=== PATIENT | male | born 1975 | race Caucasian/White ===

== ENCOUNTER 2023-09-18 07:04 | Emergency (ER) | payer BC ==
[2023-09-18 07:25] VITALS: O2SAT 100
--- NOTE | 2023-09-18 07:38 | ED Physician Documentation ---
PD HPI ABD PAIN - Stated complaint Stated Complaint: FLANK PX - Chief complaint Chief Complaint: Abd Pain - History obtained from History obtained from: Patient - History of Present Illness Timing - onset: How many hours ago (6), Today Timing - duration: Hours (abrupt onset at 1 am of left flank pain consistently. Eased some for hour or two, but worse again the past 2 hours.) Timing - details: Abrupt onset, Still present Pain level max: 10 Pain level now: 10 Quality: Cramping, Aching, Pain Location: LLQ Radiation: Left flank (initially in flank and moved some to left abd.) Improved by: No: Laying still, Position Worsened by: No: Moving, Breathing, Position, Palpation Associated symptoms: Nausea, Vomiting. No: Fever, Diarrhea, Constipation Similar symptoms before: Has not had sx before Review of Systems Ears: reports: Other (vertigo positional for past month, has seen PCP and is started PT with Donato maneuvers without much improvement. No hearing changes. No allergies nor sinus congestion.) : denies: Dysuria, Frequency, Hematuria PD PAST MEDICAL HISTORY - Past Medical History Past Medical History: Yes Neuro: Other - Past Surgical History Past Surgical History: No - Present Medications Home Medications: Ambulatory Orders Medication Instructions Recorded Confirmed dexAMETHasone [Decadron] 4 mg PO DAILY #5 tablet 09/18/23 - Allergies Allergies/Adverse Reactions: Allergies Allergy/AdvReac Type Severity Reaction Status Date / Time No Known Drug Allergies Allergy Verified 09/18/23 07:20 - Social History Does the pt smoke?: No Smoking Status: Never smoker Does the pt drink ETOH?: Yes Does the pt have substance abuse?: No - Immunizations Immunizations are current?: Yes - POLST Patient has POLST: No PD ED PE NORMAL - Vitals Vital signs reviewed: Yes - General General: Alert and oriented X 3, Well developed/nourished, Other (appears very uncomfortable and is pacing in room, holding left flank. ) - Cardiac Cardiac: RRR, No murmur - Respiratory Respiratory: Clear bilaterally - Abdomen Abdomen: Soft, Non tender - Back Back: No spinal TTP, Other (some CVA tender to percussion left side. ) - Derm Derm: Normal color, Warm and dry, No rash Results - Vitals Vitals: Vital Signs - 24 hr 09/18/23 09/18/23 09:37 10:36 Temperature 36.2 C L 36.4 C L Heart Rate 58 L 98 Respiratory 16 18 Rate Blood Pressure 118/80 123/84 H O2 Saturation 100 100 Oxygen O2 Source Room air - Labs Labs: Laboratory Tests 09/18/23 09/18/23 09/18/23 07:33 07:33 07:40 WBC 8.5 RBC 5.37 Hgb 15.4 Hct 46.2 MCV 86.0 MCH 28.7 MCHC 33.3 RDW 12.5 Plt Count 280 MPV 9.5 Neut # (Auto) 5.9 Lymph # (Auto) 2.1 [place] # (Auto) 0.4 Eos # (Auto) 0.1 Baso # (Auto) 0.1 Absolute Nucleated RBC 0.00 Nucleated RBC % 0.0 Sodium 138 Potassium 4.1 Chloride 104 Carbon Dioxide 26 Anion Gap 8.0 BUN 14 Creatinine 1.1 Estimated GFR (MDRD) 72 L Glucose 97 Calcium 9.8 Total Bilirubin 1.2 H AST 15 ALT 24 Alkaline Phosphatase 68 Total Protein 8.0 Albumin 4.6 Globulin 3.4 Albumin/Globulin Ratio 1.4 Lipase 223 H Urine Color YELLOW Urine Clarity HAZY Urine pH 6.0 Ur Specific [place] 1.020 Urine Protein NEGATIVE Urine Glucose (UA) NEGATIVE Urine Ketones NEGATIVE Urine Occult Blood LARGE H Urine Nitrite NEGATIVE Urine Bilirubin NEGATIVE Urine Urobilinogen 0.2 (NORMAL) Ur Leukocyte Esterase NEGATIVE Urine RBC 0-5 Urine WBC 0-3 Ur Squamous Epith Cells FEW Squamous Urine Bacteria Few Ur Microscopic Review INDICATED Urine Culture Comments NOT INDICATED - Rads (name of study) mild hydroureter on left. 2-3 mm stone in bladder Relevant Findings:: Prelim report reviewed, EMP independent interpretation of test PD Medical Decision Making - ED course Complexity details: reviewed results, re-evaluated patient (pain much improved with meds in ED of zofran, toradol and dilaudid. Not fully resolved but he is comfortable enough and declines further meds for now. ), considered differential (sounds most c/w kidney stone. No prior similar. Pain largely in flank so concern for largher stone. versus other causes. Can get CT scan shared decision with pt. ), d/w patient, d/w family (spouse) Reviewed Lab Results: by the time of CT, with only mild pain still, the stone appears to have gone into bladder. Presume some residual ureteral spasms/irritation. No other cause seen for pain on CT. regardeing his vertigo, he will be returning home to [place] this week (is just on vacation) so to follow up with PCP and PT there, ? to ask about ENT. Departure - Departure Disposition: 01 Home, Self Care Clinical Impression: Acute left flank pain, Ureterolithiasis, Vertigo Condition: Stable Record reviewed to determine appropriate education?: Yes Instructions: ED Stone Renal Passed, ED Vertigo Unspecified Prescriptions: dexAMETHasone [Decadron] 4 mg PO DAILY #5 tablet Comments: You did have a kidney stone in the left ureter causing the pain to your kidney and left side. This seems to have passed into the bladder on your CT scan. It was smaller 2 to 3 mm and so alonso you that it passed fairly readily. There often will be some crampiness in aching due to the irritation of the ureter from the stone and also some spasming of the ureter. This should be relatively mild and be treatable with Tylenol every 4-6 hours or ibuprofen/Advil every few hours. We can also add in a steroid type anti-inflammatory more primarily to help the vertigo you have been having; sometimes there can be inflammation in the inner ear contributing to the vertigo. Continue with the meclizine. You could also add a less sedating antihistamine such as cetirizine twice daily and see if you would need less of the meclizine along the way which can be more sedating. Stay well-hydrated. Follow-up with your primary care back in [place]. Forms: PCP List Discharge Date/Time: 09/18/23 10:43
[2023-09-18 07:40] LABS: BASOPHILS # (AUTO) 0.1 10^3/uL (0.0-0.1); BASOPHILS % (AUTO) 0.6 %; EOSINOPHILS # (AUTO) 0.1 10^3/uL (0.0-0.7); EOSINOPHILS % (AUTO) 1.4 %; HCT - HEMATOCRIT 46.2 % (42.0-52.0); HGB - HEMOGLOBIN 15.4 g/dL (14.0-18.0); LYMPHOCYTES # (AUTO) 2.1 10^3/uL (1.5-3.5); LYMPHOCYTES % (AUTO) 24.9 %; MEAN CORPUSCULAR HEMOGLOBIN 28.7 pg (27.0-31.0); MEAN CORPUSCULAR HGB CONC 33.3 g/dL (32.0-36.0); MEAN PLATELET VOLUME 9.5 fL (7.4-11.4); MONOCYTES # (AUTO) 0.4 10^3/uL (0.0-1.0); MONOCYTES % (AUTO) 4.2 %; NEUTROPHILS # (AUTO) 5.9 10^3/uL (1.5-6.6); NEUTROPHILS % (AUTO) 68.5 %; PLT - PLATELET COUNT 280 10^3/uL (130-450); RED BLOOD COUNT 5.37 10^6/uL (4.70-6.10); RED CELL DISTRIBUTION WIDTH 12.5 % (12.0-15.0); WHITE BLOOD COUNT 8.5 x10^3/uL (4.8-10.8)
[2023-09-18 07:48] LABS: BILIRUBIN,URINE NEGATIVE (NEGATIVE); GLUCOSE, URINE (UA) NEGATIVE (NEGATIVE); KETONES,URINE (UA) NEGATIVE (NEGATIVE); LEUKOCYTE ESTERASE, URINE NEGATIVE (NEGATIVE); NITRITE,URINE NEGATIVE (NEGATIVE); OCCULT BLOOD,URINE LARGE (NEGATIVE); PROTEIN,URINE NEGATIVE (NEGATIVE); UROBILINOGEN,URINE 0.2 (NORMAL) E.U./dL (NORMAL)
[2023-09-18 07:50] LABS: ALBUMIN 4.6 g/dL (3.2-5.5); ALBUMIN/GLOBULIN RATIO 1.4 (1.0-2.2); BILIRUBIN,TOTAL 1.2 mg/dL (0.2-1.0); CALCIUM 9.8 mg/dL (8.5-10.3); CREATININE 1.1 mg/dL (0.6-1.3); POTASSIUM 4.1 mmol/L (3.5-4.5)
[2023-09-18 07:55] LABS: CLARITY,URINE HAZY (CLEAR)
[2023-09-18 07:59] LABS: RBC,URINE 0-5 /HPF (0-5); SQUAMOUS EPITHELIAL CELL,UR FEW Squamous (<= Few); WBC,URINE 0-3 /HPF (0-3)
[2023-09-18 08:00] LABS: BACTERIA,URINE Few /HPF (None Seen)
[2023-09-18] MEDS: ONDANSETRON 4 MG/2 ML VIAL IVP STA (08:01)
[2023-09-18] MEDS: KETOROLAC 15 MG/ML VIAL IVP STA (08:01)
[2023-09-18] MEDS: HYDROmorphone 1 MG/ML CARPUJECT IVP STA (08:02)
[2023-09-18] MEDS ORDERED: iohexoL-300 100 ML VIAL ONE (08:04)
--- NOTE | 2023-09-18 08:43 | CT Report ---
PROCEDURE: Abdomen/Pelvis W INDICATIONS: left flank pain abrupt CONTRAST: Omni 300 100ml TECHNIQUE: After the administration of intravenous contrast, a CT scan of the abdomen and pelvis was performed. Images were recorded and evaluated at appropriate window settings. Reformats: coronal and sagittal. F or radiation dose reduction, the following was used: automated exposure control, adjustment of mA and /or kV according to patient size. COMPARISON: None. FINDINGS: Image quality: Diagnostic. Lower chest: Bibasilar dependent atelectasis is seen. Heart size is normal, no pericardial effusion.. Liver: No solid mass. Gallbladder: No radiopaque stones or wall thickening. Biliary tree: No intrahepatic or extrahepatic dilation, accounting for age. Spleen: No splenomegaly. Pancreas: No pancreatic ductal dilation. Adrenals: No adrenal nodule. Kidneys and ureters: No right-sided stones or hydronephrosis. No right hydroureter. There is slight p rominence of left renal collecting system and left proximal ureter without calcified intraureteral st one seen. No renal cystic lesion which requires follow up. No solid mass. Stomach, bowel and peritoneum: No gastric or small bowel dilation. No abnormal wall thickening. No pa thologic free fluid. Lymph nodes: No central or retroperitoneal adenopathy. Vessels: No infrarenal aortic aneurysm. Patent portal vein. PELVIS Reproductive organs: Unremarkable. Bladder: No abnormal wall thickening, accounting for underdistention. Phleboliths are noted in bilate ral lower pelvis. There is also a 2 mm calcification seen within dependent portion of gallbladder lum en. Pelvic lymph nodes: No pelvic adenopathy by size criteria. Bones: No aggressive osseous abnormality. Other: No significant ventral or inguinal hernia. IMPRESSION: 1. Finding is suggestive of a passed 2 mm left-sided renal stone with very mild residual left hydrone phrosis and proximal hydroureter. No right-sided hydronephrosis or hydroureter. 2. No gross bladder wall abnormalities. 3. No bowel obstruction or abnormal bowel wall thickening. No free fluid of free air. Reviewed by: Buddy Pino MD on 09/18/2023 8:42 AM PDT Approved by: Buddy Pino MD on 09/18/2023 8:42 AM PDT Station ID: [id number]
[2023-09-18] MEDS: TAMSULOSIN 0.4 MG CAPSULE PO STA (09:09)
[2023-09-18] MEDS: iohexoL-300 100 ML VIAL IVP ONE (09:13)
[2023-09-18] MEDS: dexAMETHasone 4 MG TABLET PO STA (10:12)
[2023-09-18 10:37] VITALS: BP 123/84
== END 2023-09-18 10:43 | disposition home or self-care (01) ==
LOC: ED 07:04
DX: N20.1 Calculus of ureter (principal); R42 Dizziness and giddiness
CPT/HCPCS: 36415; 74177; 80053; 81001; 83690; 85025; 96374; 96375; 99284; A9270; J1170; J8540; Q9967; 81003; 87086